=== PATIENT | female | born 1970 ===

== ENCOUNTER 2021-08-16 11:15 | Inpatient (IN) | payer OTHER ==
[~2021-08-16] VITALS: Ht 165.1 cm; Wt 57.6 kg
[2021-08-16] MEDS ORDERED: SYNTHROID50 MCG PO (13:26)
[2021-08-16] MEDS ORDERED: ZESTRIL40 M1 PO (13:27)
[2021-08-16] MEDS ORDERED: VENLAFAXINE PO (13:27)
[2021-08-16] MEDS ORDERED: LORAZEPAM1 MG PO (13:27)
[2021-08-16] MEDS ORDERED: FIORICET (13:28)
[2021-08-19] MEDS ORDERED: VENLAFAXINE HCL25 MG (15:44)
[2021-08-19] MEDS ORDERED: BUTALBIT-ACETA1 EACH (15:44)
[2021-08-21] MEDS ORDERED: IBUPROFEN800 MG PO (07:06)
[2021-08-21] MEDS ORDERED: NEURONTIN600 MG PO (07:06)
[2021-08-21] MEDS ORDERED: POLY119PG PO (07:06)
[2021-08-21] MEDS ORDERED: SIMETHICONE125 M1 PO (07:06)
== END 2021-08-21 08:35 | disposition home or self-care (01) | DRG 743 ==
LOC: ADM 11:15 → EDSTATUS 11:15 → O/R 08-19 05:34 → OB/GYN 08-19 08:30
PROVIDERS: ADMIT Obstetrics & Gynecology; ATTEND Obstetrics & Gynecology
PROC: 0UB70ZZ Excision of Bilateral Fallopian Tubes, Open Approach (ICD-10-PCS; 2021-08-19)
PROC: 0UT90ZZ Resection of Uterus, Open Approach (ICD-10-PCS; principal; 2021-08-19 08:30)
DX: N72 Inflammatory disease of cervix uteri (principal); N94.89 Other specified conditions associated with female genital organs and menstrual cycle; D50.0 Iron deficiency anemia secondary to blood loss (chronic); D25.9 Leiomyoma of uterus, unspecified